=== PATIENT | female | born 1960 | race African-American/Black ===

== ENCOUNTER 2024-02-20 18:19 | Emergency (ER) | payer MEDICAID ==
[~2024-02-20] VITALS: Ht 162.6 cm; Wt 114.0 kg
[2024-02-20 18:21] VITALS: O2SAT 97
[2024-02-20] MEDS ORDERED: NITROGLYCERIN 0.4MG TABLET SL SL PRN (19:00)
[2024-02-20 19:38] LABS: BASOPHILS % 1.1 % (0.0-2.0); EOSINOPHILS % 1.9 % (0.0-5.0); HEMATOCRIT. 44.2 % (36.0-48.0); HEMOGLOBIN. 15.2 g/dL (12.0-16.0); LYMPHOCYTES % 36.4 % (20.0-50.0); MEAN CORPUSCULAR HEMOGLOBIN 32.6 pg (28.0-32.0); MEAN CORPUSCULAR HGB CONC 34.4 g/dL (31.0-37.0); MEAN CORPUSCULAR VOLUME 94.9 fL (81.0-99.0); MEAN PLATELET VOLUME 8.7 fl (7.4-10.4); MONOCYTES % 6.1 % (2.0-8.0); NEUTROPHILS % 54.5 % (40.0-76.0); PLATELET 259 x1000/uL (130-400); RED BLOOD CELL COUNT 4.66 mill/uL (4.2-5.4); RED CELL DISTRIBUTION WIDTH 13.1 % (11.6-14.6)
[2024-02-20 19:44] LABS: CHLORIDE 102 mEq/L (98-107); POTASSIUM 3.4 mEq/L (3.5-5.1); SODIUM 138 mEq/L (136-145)
[2024-02-20 19:45] LABS: CALCIUM 10.4 mg/dL (8.7-10.4); CARBON DIOXIDE 28 mEq/L (21-32)
[2024-02-20 19:50] LABS: CREATININE 0.8 mg/dL (0.6-1.0); GLUCOSE 239 mg/dL (70-105); UREA NITROGEN BLOOD 9 mg/dL (9-23)
[2024-02-20 19:52] LABS: ALANINE AMINOTRANSFERASE 33 IU/L (10-49); ASPARTATE AMINOTRANSFERASE 28 IU/L (<34); BILIRUBIN TOTAL 0.4 mg/dL (0.1-1.0); TROPONIN I HIGH SENSITIVITY 12 ng/L (3.0-34)
[2024-02-20] MEDS: POTASSIUM CHLORIDE 20MEQ TABLET SR PO NR (20:31)
[2024-02-20] MEDS: LOSARTAN 100 MG TABLET PO ONE (20:31)
[2024-02-20] MEDS: ASPIRIN 81MG TABLET PO ONE (20:31)
[2024-02-20 21:48] VITALS: BP 241/130; PULSE 93; RESP 20; TEMP 98.4
== END 2024-02-20 21:50 | disposition left against medical advice (07) ==
LOC: ER 18:19
DX: I16.0 Hypertensive urgency (principal); I10 Essential (primary) hypertension; R53.1 Weakness; J44.9 Chronic obstructive pulmonary disease, unspecified; R29.810 Facial weakness
CPT/HCPCS: 80053; 83880; 85025; 84484; 36415; 71045; 70450; 93005; 99291; Z7610 ×3